=== PATIENT | male | born 1975 | race African-American/Black ===

== ENCOUNTER 2020-12-15 20:59 | Emergency (ER) | payer OTHER ==
[~2020-12-15] VITALS: Ht 190.5 cm; Wt 117.0 kg
[2020-12-15 21:12] VITALS: BP 185/108
--- NOTE | 2020-12-15 21:12 | NUR ---
to bed ambulatory
--- NOTE | 2020-12-15 21:24 | NUR ---
PT LWBS. PT WANTED US TO CALL HIM WHEN THE DR WAS READY TO SEE HIM. ADV THAT HE NEEDS TO BE IN A BED TO BE SEEN. PT WALKED OUT FRONT DOOR.
--- NOTE | 2020-12-15 22:04 | NUR ---
AMBULATED TO ER BED 5
--- NOTE | 2020-12-15 22:05 | NUR ---
PATIENT 45 Y/IO MALE BIB SELF FOR C/O R KNEE PAIN X "A FEW HOURS" S/P [address]. PATIENT STATES, "SOMEONE TOLD ME IT MIGHT BE A BLOOD CLOT AND I WAS WORRIED." PAIN ON R ANTERIOR PATELLA, PATIENT STATES PAIN 4/10 "THROBBING AND IT FEELS WEAK TO MOVE." PATIENT ABLE TO AMBULATE WITH STEADY GAIT. CMS INTACT, <3 CAP REFILL. SKIN IS WARM AND DRY TO TOUCH. SLIGHT SWELLING NOTED IN R KNEE. PATIENT DENIES PAIN WHEN PALPATED. PATINET DENIES TAKING ANY PO OTC MEDICATION FOR PAIN. "I JUST PUT ICY HOT TO HELP WITH THE PAIN." MEDHX: HTN ALLERGIES:NKA
--- NOTE | 2020-12-15 22:34 | NUR ---
SANDOVAL PEREZ AT BEDSIDE EVALUATING PATIENT.
[2020-12-15] MEDS ORDERED: ACETAMINOPHEN 325 MG TAB PO ONE (22:35)
[2020-12-15] MEDS ORDERED: IBUPROFEN 400 MG TAB PO ONE (22:35)
--- NOTE | 2020-12-15 22:43 | NUR ---
XRAY AT BEDSIDE.
--- NOTE | 2020-12-15 23:26 | NUR ---
HARLEY WRAP PLACED ON PT R KNEE. +CSM
--- NOTE | 2020-12-15 23:27 | NUR ---
PT REFUSED CRUTCHES, STATED HE DID NOT NEED THEM
--- NOTE | 2020-12-15 23:30 | NUR ---
HARLEY WRAP APPLIED TO R KNEE BY EMT. PATIENT DENIES FEELING NUMBNESS OR SWELLING. PATIENT CAP REFILL<3, CMS INTACT.
[2020-12-15] MEDS ORDERED: IBUP-2213 PO (23:32)
[2020-12-15 23:48] VITALS: BP 148/89
== END 2020-12-15 23:48 | disposition home or self-care (01) ==
LOC: MED 20:59
DX: M76.899 Other specified enthesopathies of unspecified lower limb, excluding foot (principal); M25.561 Pain in right knee; I10 Essential (primary) hypertension
CPT/HCPCS: 73562; 99283